=== PATIENT | female | born 1960 | race Caucasian/White ===

== ENCOUNTER 2016-09-26 08:50 | Observation (INO) ==
[2016-09-26] MEDS ORDERED: ZOFRAN ONE (09:30)
[2016-09-26] MEDS ORDERED: DILAUDID ONE (09:30)
[2016-09-26] MEDS ORDERED: ZOFRAN IV ONE (09:42)
[2016-09-26] MEDS ORDERED: DILAUDID IV ONE ×2 (09:43→11:30)
--- NOTE | 2016-09-26 10:56 | Diag Imaging Result Doc PS360 ---
MRI LUMBAR SPINE W/CONTRAST - 09/26/2016 INDICATION: BACK PAIN COMPARISON: None FINDINGS: There has been right-sided laminectomy at L5-S1. There is some increased signal in this region as well some enhancement. There is a tiny amount of fluid at the midline in the laminectomy bed, measuring about 14 x 6 mm. There are large disc bulges at L4-L5 and L5-S1. There is mild central canal stenosis at these levels. There is also severe right-sided neural foraminal stenosis at L5-S1. No disc herniations. There is increased signal at the inferior erector spinae muscles overlying the sacrum. No bone marrow edema. IMPRESSION: 1. Muscular edema of the inferior erector spinae muscle suggesting a muscle strain. 2. Significant disc bulges at L4-L5 and L5-S1, but no obvious disc herniation and no central canal stenosis. 3. Small amount of fluid in the laminectomy bed, appearance is expected. Electronically signed by Thor Morales 09/26/2016 10:53 AM
[2016-09-26] MEDS ORDERED: DILAUDID IV PRN (12:07)
[2016-09-26] MEDS ORDERED: NORCO-10 PO PRN (12:07)
[2016-09-26] MEDS ORDERED: D5 LR 1,000 ML IV SCH (13:00)
[2016-09-26 13:44] LABS: HEMATOCRIT 41.4 % (37.0-47.0); MCH 29.9 PG (27-31); MCHC 33.8 g/dL (33-37); MCV 88.3 FL (81-99); MPV 10.9 FL (7.4-10.4); RBC 4.69 XMIL (4.2-5.4)
[2016-09-26 14:01] LABS: AGAP 14; ALBUMIN 4.5 g/dL (3.5-5.0); ALKALINE PHOSPHATASE 70 U/L (32-104); BUN 14 mg/dL (8-22); CALCIUM 9.9 mg/dL (8.8-10.2); CHLORIDE 99 mmol/L (98-107); COSMO 274; GOT 23 U/L (10-30); GPT 23 U/L (10-36); POTASSIUM 3.5 mmol/L (3.5-5.1); SODIUM 137 mmol/L (136-145); TCO2 24 mmol/L (25-35); TOTAL BILIRUBIN 0.64 mg/dL (0.20-1.00); TOTAL PROTEIN 7.4 g/dL (6.3-8.3)
[2016-09-26] MEDS: ROBAXIN PO PRN (15:30)
[2016-09-26] MEDS: MEDROL PO SCH ×3 (17:02→22:28)
[2016-09-26 19:22] LABS: URINE CULTURE NEEDED? NO; URINE MICRO REVIEW NEEDED? NO; URINE SOURCE CATH
[2016-09-26 19:30] LABS: BILIRUBIN URINE NEGATIVE (NEGATIVE); BLOOD URINE NEGATIVE (NEGATIVE); COLOR YELLOW; GLUCOSE URINE NEGATIVE (NEGATIVE); LEUKOCYTES URINE NEGATIVE (NEGATIVE); NITRITE URINE NEGATIVE (NEGATIVE); PH URINE 7.5; PROTEIN URINE TRACE mg/dL (NEGATIVE); SP GRAVITY URINE 1.029; TURBIDITY URINE HAZY (CLEAR); UR EPITHELIAL CELLS <10 /HPF (<10); URINE BACTERIA NEGATIVE /HPF; URINE RBC <10 /HPF (<10); URINE WBC <10 /HPF (<10); UROBILINOGEN URINE NORMAL (NORMAL)
[2016-09-26] MEDS: TYLENOL PO PRN (22:27)
[2016-09-26] MEDS: ZOFRAN IV PRN (23:26)
[2016-09-27] MEDS: ROBAXIN PO PRN ×2 (02:12→08:48)
[2016-09-27] MEDS: MORPHINE IV PRN ×3 (05:16→14:25)
[2016-09-27] MEDS: ZOFRAN IV PRN ×4 (05:17→18:18)
[2016-09-27] MEDS: TYLENOL PO PRN ×3 (05:37→19:20)
[2016-09-27] MEDS: MEDROL PO SCH ×4 (08:50→20:01)
[2016-09-27] MEDS ORDERED: MEDROL PO SCH (12:00)
[2016-09-27] MEDS: LOVENOX SUBQ SCH (12:25)
[2016-09-27] MEDS: FLOMAX PO SCH (14:25)
[2016-09-28 07:18] VITALS: BP 132/78
[2016-09-28] MEDS: FLOMAX PO SCH (07:38)
[2016-09-28] MEDS: MEDROL PO SCH (07:38)
[2016-09-28] MEDS: LOVENOX SUBQ SCH (07:39)
--- NOTE | 2016-10-03 09:25 | HISTORY AND PHYSICAL ---
DIAGNOSIS: Severe back pain. HISTORY OF PRESENT ILLNESS: The patient is a 56-year-old white female, known to me. She recently had a lumbar laminectomy 8 weeks ago at [facility] for L5-S1 disk. She had been doing quite well and had increased her activities, but helped her daughter move, involving lifting heavy furniture 2 days prior to this admission. She subsequently has developed severe pain in her lower back, and spasms in the paraspinous muscles. There is no evidence of recurrent disk. PAST MEDICAL HISTORY: She is otherwise negative, multiparous. PAST SURGICAL HISTORY: She has had a tubal ligation, the only other surgery. PHYSICAL EXAMINATION: Reveals a middle-aged white female in moderate discomfort. Head and neck: She is normocephalic, atraumatic. Pupils equal and reactive. Ear, nose, and throat is negative. There is no neck stiffness. Chest is clear. Breast and axillary exam negative. Abdomen is soft with active bowel sounds. Examination of the back reveals paraspinous spasm in the musculature. Positive straight leg raise on the left, but no hip rotary-type pain. negative. Neurologically intact. IMPRESSION: Exacerbation of pain in the back from heavy lifting, with history of recent back surgery. MRI performed in the emergency room reveals some bulging of the disk, but no extruded fragments, and the postoperative changes. PLAN: Admission, IV pain and nausea control with a Medrol Dosepak. cc: Matteo Nielson MD
== END 2016-09-28 09:45 | disposition home or self-care (01) ==
LOC: 4N 08:50 → ED 08:50
PROVIDERS: ADMIT Surgery; ATTEND Surgery